=== PATIENT | female | born 1940 | race Caucasian/White ===

== ENCOUNTER 2018-02-14 13:47 | Emergency (ER) | payer OTHER ==
[~2018-02-14] VITALS: Ht 168.9 cm; Wt 77.1 kg
[~2018-02-14 13:47] MED LIST: HYDROCODONE
--- OUTSIDE RECORDS SUMMARY | 2018-02-14 13:51 | XMS REPORT ---
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 Allergies, Adverse Reactions, Alerts This patient has no known allergies or adverse reactions. Medications This patient has no known medications. Results Test Description Test Time Test Comments Text Results Atomic Results Result Comments SCR MAMM BILATERAL CAD DIGITAL 2017-12-15 09:54:18 - SCR MAMM BILATERAL CAD DIGITALBILATERAL DIGITAL SCREENING MAMMOGRAM WITH CAD: 12/10/2017CLINICAL: Asymptomatic. Current mammographic images were evaluated by either a [employer] or a [employer] ImageChecker CAD (computer aided detection system). Comparison is made to exams dated 12/08/2016 mammogram, 01/05/2016 mammogram, 01/01/2015 mammogram, and 12/26/2014 mammogram - [facility]. There are scattered fibroglandular tissues in both breasts. There are post operative findings in the left breast. No suspicious mass, architectural distortion, malignant type calcification, or lymph node abnormality detected. Breast architecture is stable compared to prior exams.IMPRESSION: BENIGNThere is no mammographic evidence of malignancy. Resume annual screening mammography in one year. Raphael Johnson M.D. ss/:12/15/2017 09:54:18 Process Environmental Technician: [place] [facility], [facility] BIRADS 1-2 Normal Mammogram BI-RADS: 2 Benign
[2018-02-14] MEDS ORDERED: KETOROLAC TROMETHAMINE 10 MG TAB PO NR (19:00)
[2018-02-14] MEDS ORDERED: HYDROCODONE/APAP 5MG-325MG TAB PO NR (19:00)
[2018-02-14] MEDS ORDERED: PREDNISONE 20 MG TAB PO NR (19:00)
[2018-02-14] MEDS ORDERED: KETOROLAC TROMETHAMINE 10 MG TAB ONE (19:06)
[2018-02-14] MEDS ORDERED: PREDNISONE 20 MG TAB ONE (19:06)
[2018-02-14] MEDS ORDERED: NIFEDIPINE 10 MG CAP PO NR (19:15)
[2018-02-14] MEDS ORDERED: NIFEDIPINE 10 MG CAP PO ONE (19:17)
--- NOTE | 2018-02-14 20:12 | Diagnostic Imaging Report ---
KNEE RIGHT 1-2 VIEWS - 3 views HISTORY: Pain COMPARISON: None available. FINDINGS: Bones: No acute displaced fracture. Osseous alignment is within normal limits. Joints: Degenerative changes with moderate to marked involvement of the medial compartment. Soft tissues: Small suprapatellar joint effusion. IMPRESSION: Degenerative osteoarthrosis. Signed by: Dr. Ignacio Holguin M.D. on 02/14/2018 8:09 PM
--- NOTE | 2018-02-14 20:13 | Diagnostic Imaging Report ---
LOWER LEG RIGHT - 4 views HISTORY: Pain COMPARISON: None available. FINDINGS: Bones: No acute displaced fracture. Osseous alignment is within normal limits. Joints: Degenerative changes with moderate to marked involvement of the medial compartment. Soft tissues: Small suprapatellar joint effusion. IMPRESSION: Degenerative osteoarthrosis. Signed by: Dr. Ignacio Holguin M.D. on 02/14/2018 8:10 PM
[2018-02-14 20:40] VITALS: BP 159/88
== END 2018-02-14 20:43 | disposition home or self-care (01) ==
LOC: ER 13:47
DX: M25.561 Pain in right knee (principal); M17.11 Unilateral primary osteoarthritis, right knee; I10 Essential (primary) hypertension
CPT/HCPCS: 73560; 73590; 99283; J7512

== ENCOUNTER → 2021-07-28 | Outpatient (CLI) | payer OTHER ==
[~2021-07-28] MED LIST changes: +AMLODIPINE BESYL5 MG PO; +ELIQUIS5 MG PO; +LIPITOR10 MG PO; +LOSARTAN POTASS25 MG PO; +OR PHACO EYE KIT ONE; +PREOP PHACO EYE KIT ONE
== END ==
LOC: OR 11:45 → LAB 11:45 → EDSTATUS 18:30
PROVIDERS: ATTEND Ophthalmology
DX: H25.12 Age-related nuclear cataract, left eye (principal); Z53.8 Procedure and treatment not carried out for other reasons

== ENCOUNTER → 2021-07-30 | Day surgery (SDC) | payer OTHER ==
[~2021-07-30] MED LIST changes: +CALCIUM PO; +MIDAZOLAM HCL 2 MG/2 ML VIAL ONE; +OSTEO BI-FLEX1 EAC2 PO; +VITAMIN E400 UNI1 PO
[2021-07-30 13:22] VITALS: BP 123/76
== END | disposition home or self-care (01) ==
LOC: OR 09:55
PROVIDERS: ATTEND Ophthalmology
DX: H25.12 Age-related nuclear cataract, left eye (principal); I10 Essential (primary) hypertension; M19.90 Unspecified osteoarthritis, unspecified site; Z91.048 Other nonmedicinal substance allergy status; Z79.02 Long term (current) use of antithrombotics/antiplatelets; Z79.899 Other long term (current) drug therapy; Z86.73 Personal history of transient ischemic attack (TIA), and cerebral infarction without residual deficits
CPT/HCPCS: 66984; J2250; V2632